=== PATIENT | male | born 1975 | race Caucasian/White ===

== ENCOUNTER 2022-04-30 06:34 | Emergency (ER) | payer MEDICAID ==
[~2022-04-30] VITALS: Ht 180.3 cm; Wt 97.5 kg
[2022-04-30 06:47] VITALS: BP_SYST 107
--- NOTE | 2022-04-30 07:00 | NUR ---
ERMD AT BEDSIDE
[2022-04-30] MEDS ORDERED: NACL 0.9% 1,000 ML IV ONE (07:15)
[2022-04-30] MEDS ORDERED: ONDANSETRON HCL 4 MG/2 ML VIAL IVP ONE (07:15)
[2022-04-30] MEDS ORDERED: MORPHINE 4 MG INJ. 4 MG/ML VIAL IVP ONE (07:15)
[2022-04-30 07:54] LABS: BASOPHILS % (AUTO) 0.2 % (0.0-2.0); HEMATOCRIT 41.8 % (36-54); HEMOGLOBIN 14.5 g/dL (14.0-18.0); LYMPHOCYTES # (AUTO) 1.3 K/uL (1.0-5.5); LYMPHOCYTES % (AUTO) 10.2 % (20.5-51.5); MEAN CORPUSCULAR HEMOGLOBIN 30 pg (27-31); MEAN CORPUSCULAR HGB CONC 35 % (32-36); MEAN CORPUSCULAR VOLUME 88 fL (79.0-98.0); MONOCYTES # (AUTO) 0.9 K/uL (0.0-1.0); MONOCYTES % (AUTO) 6.6 % (1.7-9.3); NEUTROPHILS # (AUTO) 10.9 K/uL (1.8-7.7); PLATELET COUNT (AUTO) 246 K/uL (130-430); RED BLOOD CELL COUNT(AUTO) 4.77 MIL/uL (4.2-6.2); RED CELL DISTRIBUTION WIDTH 14.7 % (9.0-15.0); WHITE BLOOD COUNT (AUTO) 13.1 K/uL (4.8-10.8)
[2022-04-30 07:55] LABS: ANION GAP 11 (5-15); CALCIUM 8.9 mg/dL (8.4-11.0); CHLORIDE 101 mmol/L (98-107); CREATININE 1.54 mg/dL (0.55-1.30); GLUCOSE 160 mg/dL (70-99); POTASSIUM 3.3 mmol/L (3.5-5.1); SODIUM SERUM 138 mmol/L (136-145); UREA NITROGEN, BLOOD 21 mg/dL (8-21)
[2022-04-30 08:03] LABS: ALANINE AMINOTRANSFERASE 18 U/L (12-78); ALBUMIN 4.4 g/dL (3.4-4.8); AMYLASE 96 U/L (0-100); ASPARTATE AMINOTRANSFERASE 48 U/L (10-37); C-REACTIVE PROTEIN QUANT 1.7 mg/dL (0-0.5); LIPASE 238 U/L (73-393); TOTAL BILIRUBIN 0.6 mg/dL (0.0-1.0)
[2022-04-30 08:05] LABS: GFR AFRICAN AMERICAN 63 mL/min (>90)
[2022-04-30 08:16] LABS: ACETONE, SERUM NEGATIVE (NEGATIVE)
--- NOTE | 2022-04-30 08:44 | NUR ---
PT IS OFF TO CT AT THIS TIME
[2022-04-30] MEDS ORDERED: HALOPERIDOL LACTATE 5 MG/ML VIAL IM ONE (09:15)
[2022-04-30] MEDS ORDERED: OMEP20CA15 PO (09:29)
[2022-04-30] MEDS ORDERED: METO-290 PO (09:29)
--- NOTE | 2022-04-30 10:31 | NUR ---
a/ox4 vss ,appears to be in no acute distress noted at this time, verbalized understanding of dc instructions, all questions answered, iv dcd, cannula intact, bleeding control
--- NOTE | 2022-04-30 10:32 | NUR ---
Patient given written and verbal discharge instructions and verbalizes understanding. ER MD discussed with patient the results and treatment provided. Patient in stable condition. Rx of given. Patient educated on pain management and to follow up with PMD. Pain Scale []. Opportunity for questions provided and answered. Medication side effect fact sheet provided.
--- NOTE | 2022-05-01 20:20 | NUR ---
addendum: NACL STOP TIME [id number]
== END 2022-04-30 10:30 | disposition home or self-care (01) ==
LOC: SED 06:34
DX: R11.15 Cyclical vomiting syndrome unrelated to migraine (principal); F12.90 Cannabis use, unspecified, uncomplicated
CPT/HCPCS: 36415; 74176; 80053; 82009; 82150; 83605; 83690; 84484; 85025; 86140; 96361; 96374; 96375; 99284; J1630; J2270; J2405; J7030